=== PATIENT | male | born 1955 | race Caucasian/White ===

== ENCOUNTER 2018-03-28 14:41 | Emergency (ER) | payer BC ==
[2018-03-28 15:10] LABS: URINE APPEARANCE CLEAR; URINE BILIRUBIN NEGATIVE (NEGATIVE); URINE BLOOD TRACE-I (NEGATIVE); URINE COLOR YELLOW; URINE GLUCOSE (UA) NEGATIVE (NEGATIVE); URINE KETONE NEGATIVE (NEGATIVE); URINE LEUKOCYTE ESTERASE TRACE (NEGATIVE); URINE NITRITE NEGATIVE (NEGATIVE); URINE PROTEIN NEGATIVE (NEGATIVE); URINE UROBILINOGEN 0.2 E.U./dL (0.20 - 1.00)
[2018-03-28 15:19] LABS: URINE BACTERIA 4+; URINE RBC 0 - 2 (NONE SEEN); URINE SQUAMOUS EPITHELIAL CELL 0 - 2 /hpf; URINE WBC 21 - 35 (0-2/hpf)
[2018-03-28] MEDS ORDERED: ACETAMINOPHEN 325 MG TAB PO ONE (15:32)
[2018-03-28] MEDS ORDERED: CIPROFLOXACIN HCL 500 MG TABLET PO ONE (15:32)
--- NOTE | 2018-03-28 15:41 | Emergency Department Record ---
History of Present Illness - General Chief complaint: Male Urogenital Problem Stated complaint: HEADACHE,FEQUENCY/PAIN URINATING Time Seen by Provider: 03/28/18 15:16 Source: Patient Mode of Arrival: Ambulatory Limitations: No limitations - History of Present Illness Initial comments: The patient is here due to a 2 day hx of dysuria and frequent urination. He denies any back pain, fever, or AP. He also may have been exposed to some chemicals while spraying a field yesterday and now has had a L frontal LEONARD for a day. The onset was gradual and he denies any visual changes, nausea, vomiting, confusion or neck pain. The patient does have a hx of prostate problems and is on Flomax. MD Complaint: Dysuria Onset/Timin -: Days(s) Radiation: None Worsens with: Urination Reports: Other - Related Data Home Medications Medication Instructions Recorded Confirmed Last Taken Tamsulosin HCl [Flomax] 0.4 mg PO DAILY 03/28/18 03/28/18 Unknown Previous Rx's Medication Instructions Recorded Ciprofloxacin HCl [Cipro] 500 mg PO Q12HR #20 tablet 03/28/18 Allergies Allergy/AdvReac Type Severity Reaction Status Date / Time simvastatin Allergy MUSCLE PAIN Verified 03/28/18 15:09 Travel Screening - Travel/Exposure Within Last 30 Days Have you traveled within the last 30 days?: No Review of Systems Constitutional: Reports: Malaise. Denies: Chills, Fever Eyes: Denies: Eye discharge ENT: Denies: Congestion Respiratory: Denies: Cough, Dyspnea Cardiovascular: Denies: Chest pain Endocrine: Denies: Fatigue Past Medical History - SOCIAL HISTORY Smoking Status: Never smoker Alcohol Use: None Drug Use: None - RESPIRATORY Hx Respiratory Disorders: No - CARDIOVASCULAR Hx Cardio Disorders: Yes Hx Hypertension: Yes - NEURO Hx Neuro Disorders: No - GI Hx GI Disorders: Yes Hx Reflux: Yes Hx Hiatal Hernia: Yes Hx Ulcer: Yes - Hx Genitourinary Disorders: Yes Hx Prostate Problems: Yes (urinary frequency) - ENDOCRINE Hx Endocrine Disorders: No - MUSCULOSKELETAL Hx Musculoskeletal Disorders: Yes Hx Arthritis: Yes - PSYCH Hx Psych Problems: No - HEMATOLOGY/ONCOLOGY Hx Hematology/Oncology Disorders: Yes Hx Blood Transfusions: Yes (1990 with bleeding ulcer) Hx Blood Transfusion Reaction: No Family Medical History Any Significant Family History?: Yes Hx Cancer: Mother *Cancer Comment: colon cancer dx'd at age 40 Physical Exam - General General Appearance: Alert, Oriented x3, Cooperative, No acute distress - Head Head exam: Atraumatic, Normocephalic, Normal inspection - Eye Eye exam: Normal appearance, PERRL, EOMI - ENT Throat exam: Normal inspection. negative: Tonsillar erythema, Tonsillar exudate - Neck Neck exam: Normal inspection, Full ROM. negative: Meningismus, Tenderness - Respiratory Respiratory exam: Normal lung sounds bilaterally. negative: Respiratory distress - Cardiovascular Cardiovascular Exam: Regular rate, Normal rhythm, Normal heart sounds - GI/Abdominal GI/Abdominal exam: Soft, Normal bowel sounds. negative: Tenderness - Extremities Extremities exam: Normal inspection, Full ROM, Normal capillary refill. negative: Tenderness - Neurological Neurological exam: Alert, Normal gait, Oriented X3. negative: Abnormal gait, Motor sensory deficit Course Vital Signs 03/28/18 15:07 Temperature 99.5 F Pulse Rate 87 Respiratory 20 Rate Blood Pressure 171/99 Pulse Ox 98 - Reevaluation(s) Reevaluation #1: The patient is feeling better at this time. His LEONARD has basically resolved and he is feeling better. He does feel like his appetite is returning and he is up walking with no difficulty. I did explain to him that it appears he does have a significant bladder infection. We did start him on Cipro already and since he is clinically feeling better he would like to go home. On recheck we did find an elevated temp but since he is improved he would like to be discharged and he will stay on Tylenol for the fever. He understands to return if his symptoms worsen. 03/28/18 16:23 Medical Decision Making - Data Complexity MDM Data: Labs Ordered and/or Reviewed - Lab Data Result diagrams: 03/28/18 15:39 03/28/18 15:39 Lab Results 03/28/18 Range/Units 15:01 Urine Color Yellow Urine Appearance Clear Urine pH 8.5 (5.0-8.0) Ur Specific [place] 1.015 (1.002-1.030) Urine Protein Negative (NEGATIVE) Urine Glucose (UA) Negative (NEGATIVE) Urine Ketones Negative (NEGATIVE) Urine Blood Trace-i (NEGATIVE) Urine Nitrite Negative (NEGATIVE) Urine Bilirubin Negative (NEGATIVE) Urine Urobilinogen 0.2 (0.20 - 1.00) E.U./dL Ur Leukocyte Esterase Trace H (NEGATIVE) Urine RBC 0 - 2 (NONE SEEN) Urine WBC 21 - 35 (0-2/hpf) U Non-Squamous Epi Cells 0 - 2 /hpf Urine Bacteria 4+ Disposition Disposition: Discharge Clinical Impression: Cystitis Disposition: Home, Self-Care Condition: (2) Stable Instructions: Urinary Tract Infection in Men (ED) Additional Instructions: Please take the Cipro as directed and use Tylenol or Motrin for fever. Drink plenty of fluids. Please see your family doctor for recheck this week. Return to the ER for any temp > 102, vomiting, chills, worsening headache or back pain. Prescriptions: Ciprofloxacin HCl [Cipro] 500 mg PO Q12HR #20 tablet Forms: Patient Portal Access Time of Disposition: 16:27 Quality - Quality Measures Quality Measures: N/A - Blood Pressure Screening View Details: Yes Does Patient Have Any of the Following: No Blood Pressure Classification: Hypertensive Reading Systolic Measurement: 171 Diastolic Measurement: 99 Screening for High Blood Pressure: < First Hypertensive BP, F/U Documented > [ [id number]] First Hypertensive Follow-up Interventions: Referral to alternative/primary care provider.
[2018-03-28 15:46] LABS: BASO % 0.1 % (0-6); GRAN % 79.5 % (47-80); LYMPH % 11.2 % (16-45); MEAN CELL VOLUME 92.9 fl (81-97); MEAN CORPUSCULAR HGB CONC 33.3 g/dl (32-36); MEAN PLATELET VOLUME 9.6 fl (7.4-10.4); MONO % 9.2 % (0-9); PLATELET COUNT 159 K/uL (130-400); RED BLOOD COUNT 4.52 M/uL (4.40-5.70); RED CELL DISTRIBUTION WIDTH 12.4 % (11.5-14.5); WHITE BLOOD COUNT W/O DIFF 13.9 K/uL (4.2-12.2)
[2018-03-28 16:04] LABS: ALB/GLOB RATIO 1.2 (1.1-1.8); ALBUMIN 4.1 g/dL (4.0-5.0); ALKALINE PHOSPHATASE 62 U/L (40-129); ALT/SGPT 14 U/L (<41); AST/SGOT 18 U/L (10.0-50.0); BLOOD UREA NITROGEN 14 mg/dL (8-23); CREATININE 0.7 mg/dL (0.7-1.2); EST GLOMERULAR FILTRATION RATE > 60 mL/min; GLUCOSE,RANDOM 115 mg/dL (74-109); TOTAL PROTEIN 7.6 g/dL (6.6-8.7)
[2018-03-28] MEDS ORDERED: IBUPROFEN 600 MG TABLET PO ONE (16:22)
== END 2018-03-28 16:32 | disposition home or self-care (01) ==
LOC: ER 14:41
DX: N30.00 Acute cystitis without hematuria (principal); R51 Headache; I10 Essential (primary) hypertension
CPT/HCPCS: 80053; 81001; 85025; 99283

== ENCOUNTER 2019-02-03 06:25 | Day surgery (SDC) | payer BC ==
[2019-02-03] MEDS ORDERED: FENTANYL PF 100MCG/2ML VIAL IV ONE (06:26)
[2019-02-03] MEDS ORDERED: LIDOCAINE 2% MDV (20MG/ML) 20ML VIAL IV ONE (06:26)
[2019-02-03] MEDS ORDERED: PROPOFOL 10 MG/ML VIAL IV ONE (06:26)
--- NOTE | 2019-02-04 08:20 | Operative Note ---
DATE OF SURGERY: 02/03/2019 OPERATION: 1. ESOPHAGOGASTRODUODENOSCOPY. 2. COLONOSCOPY. PREOPERATIVE DIAGNOSES: 1. Left upper quadrant pain. 2. History of GERD. 3. Colon cancer screening, average risk. POSTOPERATIVE DIAGNOSES: 1. Distal esophagitis, LA grade C/D. 2. Hiatal hernia with possible paraesophageal component. 3. Sigmoid diverticulosis. PREPARATION QUALITY: Good. ESTIMATED BLOOD LOSS: None. COMPLICATIONS: None apparent. PROCEDURE: After informed consent was obtained from the patient, he was placed in the left lateral decubitus position in the endoscopy suite, sedated and monitored by the department of anesthesia. Once sedated, a well-lubricated [id number] gastroscope was placed in the posterior oropharynx under direct visualization and passed to the proximal esophagus. The endoscope was advanced through the proximal, mid, and distal esophagus. 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 There was a hiatal hernia with a questionable paraesophageal component. The subdiaphragmatic stomach, pylorus, duodenal bulb, and sweep were unremarkable. J-turn views of the proximal stomach revealed a hiatal hernia. The endoscope was then straightened and retracted from the patient with no new findings noted. Digital rectal exam was unremarkable. A well-lubricated [id number] colonoscope was inserted into the rectum and advanced to the cecum. The cecum, cecal bulb, ileocecal valve, appendiceal orifice, ascending colon, transverse colon, and descending colon were free of inflammatory changes, mass lesions, or polyps. The sigmoid colon demonstrated diverticulosis. There was moderate severity noted. No inflammation was seen. No polyps were seen. The rectum was unremarkable in forward and J-turn views. The endoscope was straightened, the rectal ampulla deflated, and the endoscope was removed. RECOMMENDATIONS: I would recommend a repeat colonoscopy in 10 years. In addition, I would recommend the patient be on a [id number] proton pump inhibitor. I will also schedule him for an upper GI x-ray to further evaluate his anatomy and will also anticipate he will need general surgical evaluation by Dr. Fermin. As always, thank you for allowing me to participate in the healthcare of your patients. CC: ZAYDA CLARK MD, FACP [facility]
== END 2019-02-03 08:18 | disposition home or self-care (01) ==
LOC: HOP 06:25
PROVIDERS: ATTEND Internal Medicine Gastroenterology
DX: Z12.11 Encounter for screening for malignant neoplasm of colon (principal); K57.30 Diverticulosis of large intestine without perforation or abscess without bleeding; R10.12 Left upper quadrant pain; Z87.19 Personal history of other diseases of the digestive system; K20.9 Esophagitis, unspecified; K44.9 Diaphragmatic hernia without obstruction or gangrene
CPT/HCPCS: 00813; 43235; G0121